=== PATIENT | female | born 1990 | race African-American/Black ===

== ENCOUNTER 2018-06-05 10:59 | Emergency (ER) | payer OTHER, MEDICAID ==
[~2018-06-05] VITALS: Ht 172.7 cm; Wt 57.0 kg
[2018-06-05] MEDS ORDERED: DEXAMETHASONE 10 MG/ML VIAL IM ONE (17:30)
[2018-06-05 17:53] VITALS: BP 122/70
== END 2018-06-05 17:55 | disposition home or self-care (01) ==
LOC: ER 12:58
DX: M43.6 Torticollis (principal); F20.9 Schizophrenia, unspecified; Z88.0 Allergy status to penicillin
CPT/HCPCS: 81025; 96372; 99283; J1100

== ENCOUNTER 2018-09-20 08:40 | Emergency (ER) | payer MEDICARE, MEDICAID ==
[~2018-09-20] VITALS: Ht 172.7 cm; Wt 64.0 kg
[2018-09-20] MEDS ORDERED: DEXAMETHASONE 10 MG/ML VIAL PO ONE (10:00)
[2018-09-20] MEDS ORDERED: KETOROLAC 60MG/2ML VIAL IM ONE (10:00)
[2018-09-20 12:30] VITALS: BP 127/73
== END 2018-09-20 12:32 | disposition home or self-care (01) ==
LOC: ER 08:40
DX: R07.0 Pain in throat (principal); F20.9 Schizophrenia, unspecified; Z88.0 Allergy status to penicillin
CPT/HCPCS: 81025; 87070; 87430; 96372; 99283; J1100; J1885

== ENCOUNTER 2025-04-20 11:43 | Emergency (ER) | payer MEDICARE, MEDICAID ==
[~2025-04-20] VITALS: Ht 170.2 cm; Wt 60.0 kg
[2025-04-20 12:00] VITALS: O2SAT 100
[2025-04-20 12:52] LABS: BASOPHILS % 0.2 % (0.0-2.0); EOSINOPHILS % 0.2 % (0.0-5.0); HEMATOCRIT. 37.4 % (36.0-48.0); HEMOGLOBIN. 12.4 g/dL (12.0-16.0); LYMPHOCYTES % 14.5 % (20.0-50.0); MEAN PLATELET VOLUME 9.6 fl (7.4-10.4); MONOCYTES % 11.2 % (2.0-8.0); NEUTROPHILS % 73.9 % (40.0-76.0); PLATELET 149 x1000/uL (130-400); RED BLOOD CELL COUNT 3.76 mill/uL (4.2-5.4); RED CELL DISTRIBUTION WIDTH 13.6 % (11.6-14.6)
[2025-04-20 13:01] LABS: HCG SCREEN NEGATIVE
[2025-04-20 13:04] LABS: CREATININE 0.8 mg/dL (0.6-1.0); UREA NITROGEN BLOOD 7 mg/dL (9-23)
[2025-04-20 13:47] LABS: CLARITY URINE CLEAR (CLEAR); COLOR URINE YELLOW (YELLOW); GLUCOSE URINE NEGATIVE (NEGATIVE); KETONES URINE TRACE (NEGATIVE); NITRITE URINE NEGATIVE (NEGATIVE); OCCULT BLOOD URINE NEGATIVE (NEGATIVE); PH URINE 7.0 (4.5-8.0); PROTEIN URINE NEGATIVE (NEGATIVE); SPECIFIC GRAVITY URINE 1.013 (1.005-1.030)
[2025-04-20 13:48] LABS: LEUKOCYTE ESTERASE URINE 1+ (NEGATIVE); UROBILINOGEN URINE 0.2 E.U./dL (0.2-1.0)
[2025-04-20 14:19] LABS: SQUAMOUS EPITHELIAL CELL URINE RARE /lpf (RARE/1+)
[2025-04-20 14:21] LABS: BACTERIA URINE TRACE; RBC URINE 0-2 /hpf (0-2)
[2025-04-20] MEDS ORDERED: NITR-87 MT (15:38)
[2025-04-20 16:24] VITALS: BP 125/74; PULSE 88; RESP 16; TEMP 36.7; O2SAT 100
[2025-04-20 17:11] LABS: INFLUENZA TYPE A Presumptive Negative (Pres. Neg.); INFLUENZA TYPE B Presumptive Negative (Pres. Neg.)
[2025-04-20 17:12] LABS: RESPIRATORY SYNCYTIAL VIRUS Not Detected (Not Detectd)
== END 2025-04-20 16:26 | disposition home or self-care (01) ==
LOC: ER 11:43
DX: N39.0 Urinary tract infection, site not specified (principal); F20.9 Schizophrenia, unspecified; Z88.0 Allergy status to penicillin; Z20.822 Contact with and (suspected) exposure to COVID-19
CPT/HCPCS: 36415; 71045; 80048; 81003; 84703; 85025; 87420; 87426; 87804; 93005; 99285